=== PATIENT | male | born 1970 | race Hispanic/Latino ===

== ENCOUNTER 2017-08-15 13:41 | Emergency (ER) | payer SELFPAY ==
[2017-08-15 14:02] VITALS: BP 131/94
[2017-08-15] MEDS ORDERED: NACL 0.9% 1000 ML 1,000 ML IV ONE (14:05)
[2017-08-15] MEDS ORDERED: MORPHINE IV ONE (14:05)
[2017-08-15] MEDS ORDERED: ZOFRAN IV ONE (14:06)
--- NOTE | 2017-08-15 14:23 | Emergency Department Report ---
HPI - General Chief Complaint: Medical Clearance Time Seen by Provider: 08/15/17 13:55 - HPI HPI: This is a 47-year-old male presents to the emergency department via EMS from home with complaint of a one-day history of some right-sided groin pain and right-sided back pain, as well as some difficulty with urination. Since last night he says he has only been having some dribbling when he tries to urinate but feels that he has to go. He denies any fever, discharge, abdominal pain but does have some nausea without vomiting. He has a past medical history of hypertension and he has a previous history of kidney stones 5. He did not take anything for her symptoms. His primary care physician is a Dr. Andre. He does not have a urologist. No recent travel or sick contacts at home. ED Past Medical Hx - Past Medical History Hx Kidney Stones: Yes Hx Psychiatric Treatment: Yes - Social History Smoking Status: Never Smoker - Medications Home Medications: Home Medications Medication Instructions Recorded Confirmed Last Taken Type HYDROcodone/ACETAMINOPHEN [[place] 1 each PO Q6H PRN #10 tablet 08/15/17 Unknown Rx 5-325 Tablet] Tamsulosin [Flomax] 0.4 mg PO QDAY #5 cap 08/15/17 Unknown Rx ED Review of Systems ROS: Stated complaint: GROIN PAIN/POSS KIDNEY STONE Other details as noted in HPI Comment: All other systems reviewed and negative Constitutional: denies: chills, fever Eyes: denies: eye pain, eye discharge, vision change ENT: denies: ear pain, throat pain Respiratory: denies: cough, shortness of breath, wheezing Cardiovascular: denies: chest pain, palpitations Gastrointestinal: nausea. denies: abdominal pain Genitourinary: dysuria. denies: discharge Musculoskeletal: back pain. denies: arthralgia Skin: denies: rash, lesions Neurological: denies: headache, weakness, paresthesias Physical Exam - Physical Exam Vital Signs: Vital Signs 08/15/17 08/15/17 14:01 14:02 Temperature 98.2 F Pulse Rate 83 Respiratory 16 16 Rate Blood Pressure 131/94 [Left] O2 Sat by Pulse 97 97 Oximetry Physical Exam: GENERAL: The patient is well-developed well-nourished. HENT: Normocephalic. Atraumatic. Patient has moist mucous membranes. EYES: Extraocular motions are intact. Pupils equal reactive to light bilaterally. NECK: Supple. Trachea is midline. CHEST/LUNGS: Clear to auscultation. There is no respiratory distress noted. HEART/CARDIOVASCULAR: Regular. There is no tachycardia. There is no gallop rub or murmur. ABDOMEN: Abdomen is soft, nontender. Patient has normal bowel sounds. There is no abdominal distention. : There is no pain to palpation or any abnormalities seen with the scrotum or penis. Unable to reproduce the right inguinal pain to palpation but there is no visible or palpable signs of hernia. SKIN: Skin is warm and dry. NEURO: The patient is awake, alert, and oriented. The patient is cooperative. The patient has no focal neurologic deficits. The patient has normal speech. MUSCULOSKELETAL: There is no tenderness or deformity. There is no evidence of acute injury. ED Course Vital Signs 08/15/17 08/15/17 14:01 14:02 Temperature 98.2 F Pulse Rate 83 Respiratory 16 16 Rate Blood Pressure 131/94 [Left] O2 Sat by Pulse 97 97 Oximetry ED Medical Decision Making - Lab Data Result diagrams: 08/15/17 14:01 08/15/17 14:01 - Radiology Data Radiology results: report reviewed PROCEDURE: CT ABDOMEN PELVIS WO CON TECHNIQUE: Computerized axial tomography of the abdomen and pelvis was performed without intravenous contrast. This study is performed without intravascular contrast material and its sensitivity for abdominal and pelvic pathology, including neoplasms, inflammation, abscess, free fluid, thrombosis, arterial dissection and infarction, is reduced compared with a contrast enhanced study. HISTORY: Right flank and groin pain, hx of kidney stones COMPARISON: No prior studies are available for comparison. FINDINGS: Lower Lung figueredo: No focal abnormality seen. Upper Abdomen: The gallbladder is surgically absent. The unenhanced images of the liver are unremarkable. The pancreas and the spleen are unremarkable. Left adrenal gland is unremarkable. There is a 1.5 x 1.1 centimeter fat-density nodule in the right adrenal gland suggesting a lipoma or adrenal myelolipoma.. Kidneys, Ureters and Urinary bladder: There is mild right-sided hydronephrosis secondary to a calculus in the distal right ureter just proximal to the right ureterovesical junction measuring 3.5 x 6.5 millimeters. No other ureteral calculi are seen on the right. The right kidney is otherwise unremarkable. No masses or calculi are identified. Low-density nodules are seen in the renal cortex of the left kidney, the largest measures 3.4 centimeters greatest diameter consistent with renal cortical cyst. There is a nonobstructing calculus in the lower 3rd of the left kidney measuring 4.9 x 3.7 millimeters. There is no hydronephrosis. No ureteral calculi are seen on the left. The urinary bladder is unremarkable. Retroperitoneum: Abdominal aorta appears normal. Nonspecific subcentimeter lymph nodes are seen in the retroperitoneum. No pathologically enlarged lymph nodes are identified. Bowel: There scattered loops of small bowel showing mild decreased density in the submucosal layer. There are also areas of mucosal thickening and decreased density in the submucosal region in the right side of the colon and also in the sigmoid colon. I cannot exclude a nonspecific enteritis and colitis. Consider infectious etiology and inflammatory bowel disease. The appendix is not visualized. Reproductive organs: Prostate gland does not appear to be enlarged. Other: No acute bony abnormalities are identified. IMPRESSION: Mild right-sided hydronephrosis secondary to a calculus in the distal right ureter just proximal to the right ureterovesical junction. Mildly prominent mucosal pattern in loops of small bowel and colon as described above with areas of decreased density in the submucosal layer. I cannot exclude a nonspecific enteritis and colitis. Consider infectious etiology and inflammatory bowel disease. Prior cholecystectomy. Renal cortical cyst visualize left kidney.. Benign appearing fat-density nodule right adrenal gland as described above suggesting adrenal myelolipoma or lipoma of the right adrenal gland. Transcribed By: CHELITA Dictated By: MARIANA STEVENSON MD Electronically Authenticated By: MARIANA STEVENSON MD Signed Date/Time: 08/15/17 1128 - Medical Decision Making 47-year-old male presents with some pain towards the right little groin and history of kidney stones. CT confirms a 6.5 x 3 mm stone in the right ureter just proximal to the ureterovesicular junction. There is mild hydronephrosis. The patient's labs unremarkable. There is no sign of acute kidney injury or renal insufficiency. While there is some hematuria seen microscopically on the urinalysis, there is no signs of any urinary tract infection. There is no systemic leukocytosis. Vital signs are stable and could being afebrile. The patient at first complained of some difficulty with urination but the patient has put out about 500-600 mL of urine since being in the emergency department. Since the patient is feeling improved, urinating freely, does not have any acute kidney injury or renal insufficiency, does not show any signs of urinary tract infection or systemic infection and certainly no signs of sepsis, is afebrile, we will attempt to treat the patient outpatient first. He will go home with some Flomax, pain medication and a strainer for his urine. He was given multiple referrals for urology. He will try and follow up with urology in the next few days but will return to the emergency department with any development of fever, and urinary, increased abdominal pain, vomiting and/or dehydration or with any acute distress. All of the labs, imaging and plan have been discussed with the patient and he verbalized understanding and agrees to plan. - Differential Diagnosis nephrolithiasis, cholecystitis, hernia, colitis Critical Care Time: No Critical care attestation.: If time is entered above; I have spent that time in minutes in the direct care of this critically ill patient, excluding procedure time. ED Disposition Clinical Impression: Nephrolithiasis, Renal colic on right side Disposition: DC-01 TO HOME OR SELFCARE Is pt being admited?: No Condition: Stable Instructions: Kidney Stones (ED), Renal Colic (ED), How to Strain Your Urine ( ED) Additional Instructions: Please follow up with a urologist in the next few days. You have been given a strainer so that you can strain her urine and look for the past renal calculus/ kidney stone. Return to the emergency department with any increased pain, inability to pass the stone, inability to urinate, development of fever, or any acute distress. You have been prescribed a medication that is sedating and therefore should not be taken prior to driving, working, and responsible for children and in no way should be mixed with alcohol of any quantity. Prescriptions: HYDROcodone/ACETAMINOPHEN [[place] 5-325 Tablet] 1 each PO Q6H PRN #10 tablet PRN Reason: Pain Tamsulosin [Flomax] 0.4 mg PO QDAY #5 cap Referrals: SUKI CUELLAR MD [Staff Physician] - JAMES GARCIA MD [Referring] - BISHNU HOOKS MD [Referring] - HERRERA Time of Disposition: 16:29
[2017-08-15] MEDS ORDERED: MORPHINE ONE (14:25)
[2017-08-15 14:33] LABS: Hematocrit 40.8 % (35.5-45.6); Hemoglobin 14.2 gm/dl (11.8-15.2); Mean Corpuscular HGB Conc 35 % (32-34); Mean Corpuscular Hemoglobin 29 pg (28-32); Mean Corpuscular Volume 84 fl (84-94); Platelet Count 355 K/mm3 (140-440); Red Blood Count 4.88 M/mm3 (3.65-5.03); Red Cell Distribution Width 13.7 % (13.2-15.2); White Blood Count 8.5 K/mm3 (4.5-11.0)
[2017-08-15 14:49] LABS: Anion Gap 18 mmol/L; BUN/Creatinine Ratio 13; Blood Urea Nitrogen 12 mg/dL (9-20); Calcium 9.1 mg/dL (8.4-10.2); Carbon Dioxide 25 mmol/L (22-30); Chloride 100.4 mmol/L (98-107); Glucose 108 mg/dL (75-100); Potassium 3.6 mmol/L (3.6-5.0); Sodium 140 mmol/L (137-145)
[2017-08-15 15:02] LABS: Bilirubin,Urine NEG (Negative); Blood,Urine LG (Negative); Ketones,Urine NEG (Negative); Leukocyte Esterase,Urine NEG (Negative); Mucus,Urine FEW /HPF; Nitrite,Urine NEG (Negative); Protein,Urine <15 mg/dL mg/dL (Negative); Urobilinogen,Urine < 2.0 mg/dL (<2.0)
--- NOTE | 2017-08-15 15:30 | Cat Scan Report ---
FINAL REPORT PROCEDURE: CT ABDOMEN PELVIS WO CON TECHNIQUE: Computerized axial tomography of the abdomen and pelvis was performed without intravenous contrast. This study is performed without intravascular contrast material and its sensitivity for abdominal and pelvic pathology, including neoplasms, inflammation, abscess, free fluid, thrombosis, arterial dissection and infarction, is reduced compared with a contrast enhanced study. HISTORY: Right flank and groin pain, hx of kidney stones COMPARISON: No prior studies are available for comparison. FINDINGS: Lower Lung figueredo: No focal abnormality seen. Upper Abdomen: The gallbladder is surgically absent. The unenhanced images of the liver are unremarkable. The pancreas and the spleen are unremarkable. Left adrenal gland is unremarkable. There is a 1.5 x 1.1 centimeter fat-density nodule in the right adrenal gland suggesting a lipoma or adrenal myelolipoma.. Kidneys, Ureters and Urinary bladder: There is mild right-sided hydronephrosis secondary to a calculus in the distal right ureter just proximal to the right ureterovesical junction measuring 3.5 x 6.5 millimeters. No other ureteral calculi are seen on the right. The right kidney is otherwise unremarkable. No masses or calculi are identified. Low-density nodules are seen in the renal cortex of the left kidney, the largest measures 3.4 centimeters greatest diameter consistent with renal cortical cyst. There is a nonobstructing calculus in the lower 3rd of the left kidney measuring 4.9 x 3.7 millimeters. There is no hydronephrosis. No ureteral calculi are seen on the left. The urinary bladder is unremarkable. Retroperitoneum: Abdominal aorta appears normal. Nonspecific subcentimeter lymph nodes are seen in the retroperitoneum. No pathologically enlarged lymph nodes are identified. Bowel: There scattered loops of small bowel showing mild decreased density in the submucosal layer. There are also areas of mucosal thickening and decreased density in the submucosal region in the right side of the colon and also in the sigmoid colon. I cannot exclude a nonspecific enteritis and colitis. Consider infectious etiology and inflammatory bowel disease. The appendix is not visualized. Reproductive organs: Prostate gland does not appear to be enlarged. Other: No acute bony abnormalities are identified. IMPRESSION: Mild right-sided hydronephrosis secondary to a calculus in the distal right ureter just proximal to the right ureterovesical junction. Mildly prominent mucosal pattern in loops of small bowel and colon as described above with areas of decreased density in the submucosal layer. I cannot exclude a nonspecific enteritis and colitis. Consider infectious etiology and inflammatory bowel disease. Prior cholecystectomy. Renal cortical cyst visualize left kidney.. Benign appearing fat-density nodule right adrenal gland as described above suggesting adrenal myelolipoma or lipoma of the right adrenal gland.
== END 2017-08-15 18:55 | disposition home or self-care (01) ==
LOC: ED 13:41
DX: N20.0 Calculus of kidney (principal)
CPT/HCPCS: 36415; 74176; 80048; 81001; 85027; 96374; 96375; 99284; J2270; J2405; J7030